=== PATIENT | male | born 1970 | race Caucasian/White ===

== ENCOUNTER → 2016-10-26 | Day surgery (SDC) | payer BC ==
[2016-10-18 15:13] VITALS: Ht 175.3 cm; Wt 95.9 kg
[~2016-10-26] VITALS: Ht 175.3 cm; Wt 95.9 kg
[~2016-10-26] MED LIST: AMLO-110 PO; AMOXPOW3 PO; BUPIVACAINE 0.25% 2.5MG/ML PF 10 ML VIAL INFIL ONE; BUPIVACAINE/EPINEPHRINE 0.5% MPF 1:200,000 30 ML VIAL ONE; CLINDAMYCIN 900MG IV SCH; DEXAMETHASONE SOD INJ 4 MG/ML VIAL ONE; EpHEDrine SULFATE INJ 50 MG/ML AMP ONE; FENTANYL CITRATE INJ 50 MCG/1 ML 2 ML VIAL IV PRN; FENTANYL CITRATE INJ 50 MCG/1 ML 2 ML VIAL ONE; HYDR25TA4 PO; LACTATED RINGER'S 1000ML 1,000 ML IV PRN; LACTATED RINGER'S 1000ML 1,000 ML IV SCH; LIDOCAINE HCL 2% 2 ML VIAL (20MG/ML) ONE; MIDAZOLAM HCL 1 MG/ML 2ML VIAL ONE; MoRPHine SULFATE PF 1 MG/ML 10 ML AMP/VIAL ONE; ONDANSETRON INJ 2 MG/ML 2 ML VIAL IV PRN; ONDANSETRON INJ 2 MG/ML 2 ML VIAL ONE; PROPOFOL IV EMULSION 10 MG/ML 20 ML VIAL IV ONE; ROPIVACAINE 0.5% 5 MG/ML 30 ML VIAL ONE; SCOPOLAMINE 1.5 MG TDSY TD ONE; SODIUM CHLORIDE 0.9% 1000ML 1,000 ML IV SCH
--- NOTE | 2016-10-26 09:36 | HISTORY & PHYSICAL EXAMINATION ---
DATE OF ADMISSION: 10/26/2016 ATTENDING PHYSICIAN: Dr. Nakul Gongora. CHIEF COMPLAINT: Severe reactive synovitis of the left knee. HISTORY OF PRESENT ILLNESS: This 45-year-old male presents to the clinic today for his preoperative history and physical examination. The patient has a longstanding history of left knee issues. He has had 2 previous arthroscopies of the left knee in regards to his medial meniscus with incomplete relief of his symptoms, persistent reactive synovitis, knee joint effusions and clicking with flexion and extension. The patient states that his knee issues may be due to an injury that occurred while playing football several years ago or due to his competitive bowling. The patient states that he has had multiple injections with viscosupplementation and steroid injections without relief of his symptoms. The patient states that the pain in the knee if affecting his daily life and causes a slight gait disturbance. PAST SURGICAL HISTORY: Cholecystectomy, ENT surgery, tonsillectomy/adenoidectomy, right shoulder surgery x2 and left knee arthroscopy x2. PAST MEDICAL HISTORY: Hypertension, hiatal hernia, gastroesophageal reflux disease and sleep apnea. FAMILY HISTORY: Father throat cancer. Brother salivary cancer. Uncle colon cancer. Paternal grandfather with esophageal cancer and mother hypertension. ALLERGIES: THE PATIENT HAS MEDICATION ALLERGIES TO BACTRIM, CEPHALEXIN, COMPAZINE, DROPERIDOL, HYDROCODONE, PHENERGAN AND PHENOTHIAZINES. CURRENT MEDICATIONS TAKEN: Amlodipine 5 mg tablet 1 tab daily, hydrochlorothiazide 12.5 mg tablet daily. SOCIAL HISTORY: The patient denies a history of smoking, alcohol or illicit drug use. PHYSICAL EXAMINATION: SKIN: The patient's skin is normal in appearance. No open skin lesions or discharge. EYES: Pupils are equal and reactive to light and accommodation. Extraocular movements are intact. EARS: Canals are clear of cerumen. Tympanic membranes are intact bilaterally with no bulging or effusion. THROAT: Posterior oropharynx clear with absence of edema, erythema or exudate. CARDIOVASCULAR EXAMINATION: The patient has a regular rate and rhythm with no murmurs or gallops appreciated. LUNGS: Auscultation of the lung posey reveals clear breath sounds throughout with no wheezing, rales or rhonchi. ABDOMEN: Mildly obese, nondistended, nontender with normoactive bowel sounds. EXTREMITIES: LEFT KNEE: The patient is able to extend to 0 degrees and flex to 138 degrees. He has audible clicking with active and passive range of motion in the knee joint. He also has moderate crepitation with active and passive range of motion. The patient has no medial or lateral joint line tenderness upon palpation with knee placed in a flexed position. He has no varus or valgus laxity, negative AP drawer sign, negative Brayden test. His patella is freely mobile. Left calf soft and supple, nontender to palpation. He experiences no referred knee pain with posterior plantar flexion of the left foot actively or passively against resistance. The patient is neurovascularly intact in his left lower extremity. His peripheral pulses are palpable. Capillary refill is brisk. He does have a small notable effusion over the anterior surface of the left knee joint. All other extremities are normal in appearance with appropriate range of motion and strength. NEUROLOGICAL EXAMINATION: Cranial nerves II-XII are intact. No motor or sensory deficit. PSYCHOLOGICAL AND GENERAL: The patient is alert and oriented x3 with proper grooming and hygiene. DIAGNOSIS: Left knee degenerative joint disease. PROCEDURE: Arthroscopic Carticel biopsy of the left knee. PLAN: The patient is scheduled to undergo this procedure with Dr. Nakul Gongora at the [facility] at 10:30 a.m. this morning. Risks and complications of surgery such as infection, bleeding, pain, scarring, nerve and blood vessel damage, weakness, wound problems, stiffness, incomplete relief of symptoms, heart attack, stroke, , blood clots, embolism and recurrence were explained to the patient. He understands and agrees. Written consent to perform the procedure was obtained. We have already obtained the patient's preoperative EKG, CBC, BMP and medical clearance from his primary care provider in [place], [place]. The patient was given a prescription for Lovenox to use for 7 days for DVT prophylaxis. Afterwards he states that he would use over the counter Advil for relief of pain, inflammation and for blood clotting properties. He was given a prescription for clindamycin 300 mg 4 times daily for 5 days for infection prophylaxis. He was offered a prescription for Percocet, but declined and stated that he would not take it so one was not provided. The patient was given a set of crutches that he will bring with him for today's surgery. He will be scheduled for 2 week postoperative followup with Dr. Gongora after the surgery and he will be given ice wrap after the surgery today as well. The patient verbalized understanding of all information provided at today's visit, thanked us for the care he has received and states that if he has questions or concerns that should arise he will direct them to Dr. Gongora this morning. CAROLE
--- NOTE | 2016-10-26 10:04 | History & Physical Bridge Note ---
H&P Re-Evaluation Bridge Note: I have examined the patient, reviewed the History & Physical and in the interval since the performance of the History & Physical I have noted the following changes of clinical significance: No changes noted
--- NOTE | 2016-10-26 10:06 | Discharge Instructions ---
Discharge Instructions Date of Service October 26, 2016. Visit Reason for Visit: Left Knee Degenerative Joint Disease Discharge Discharge Diagnosis / Problem: same Discharge Goals Goal(s): Improve function Medications Stopped Medications Name(s): na Restart Stopped Medication(s): use scripts as directed Activity Recommendations Activity Limitations: as noted below Lifting Limitations: until after follow-up appointment Exercise/Sports Limitations: until after follow-up appointment May Resume Sexual Activity: when tolerated Shower/Bathe: keep incision dry Driving or Machine Use: no limitations Weightbearing Status: Left weightbearing (as tolerated) Anesthesia . Post Anesthesia Instructions: If you have had General Anesthesia or IV Sedation: * Do not drive today. * Resume driving when surgeon permits. * Do not make important decisions or sign legal documents today. * Call surgeon for: 1. Temperature elevations greater than 101 degrees F. 2. Uncontrollable pain. 3. Excessive bleeding. 4. Persistent nausea and vomiting. 5. Medication intolerance (nausea, vomiting or rash). * For nausea and vomiting use only clear liquids such as: tea, soda, bouillon until nausea subsides, then gradually increase diet as tolerated. * If you have any concerns or questions, call your surgeon's office. If physician is unavailable and it is an emergency, call 911 or go to the nearest emergency room. . Instructions / Follow-Up Instructions / Follow-Up The following are instructions to follow after your Arthroscopic Knee Surgery. ACTIVITY RECOMMENDATIONS: * Minimize activity until your first visit after surgery. * No excessive walking, jogging, sports or laboring. * Return to activity is individualized. Most patients are able to return to every day activities within one month. * Return to sports or intensive labor usually occurs at 2-3 months. * Driving is not permitted until at least your first postoperative visit at a minimum. Please ask your doctor when it is safe to resume driving. If you have an automatic vehicle and your left leg has been operated on, then you may begin driving as soon as you are comfortable and can drive safely. SCHOOL/WORK RECOMMENDATIONS: * You may return to sedentary work or school when you are feeling more comfortable. This is usually 3-7 days after surgery. * Expect increased discomfort with increased activity. Continue to elevate and ice the leg as much as possible. MEDICATIONS: * You will have a prescription for pain medication and an anti-inflammatory medication after surgery. * Use the pain medication for severe pain and the anti-inflammatory for less severe pain. Once the pain medication has run out, try to use the anti-inflammatory medication. If this is not effective, contact the office for assistance. * The pain medication may cause nausea, constipation and drowsiness. You should see how they affect you before driving or similar activity. * The anti-inflammatory medication may cause stomach upset and bleeding. If this occurs let your doctor know immediately . * Take a stool softener like Colace or a laxative like Senokot to prevent constipation. DIET: * Resume previous diet. SPECIAL CARE: ICE: You have the option of an ice cooler, gel packs or ice bags. * If you have an ice cooler, refer to the instructions for that device. The ice cooler may be used continuously. * If you do not have an ice cooler, you will need to use ice bags or gel packs. Do not apply ice directly to the skin. Use a thin dressing or yang shirt between the skin and ice bag. Apply ice for 20-30 minutes and repeat every 2-4 hours. This is especially important for the first 7-10 days after surgery. Once the pain improves, use ice as needed. ELEVATION: * Keep your leg elevated at or above the level of your heart as much as possible. * Expect some increased discomfort and swelling if you are standing for any length of time. * When lying down, avoid placing anything under your knee. Rather, prop your leg up by placing several pillows under your heel or calf. DRESSING: * Your dressing will be changed at your first therapy appointment approximately 4-5 days after surgery. Band-aids, tape strips or gauze may be applied. You may then change your dressing daily. * Reapply dressing followed by the Brady wrap or Tubi-entry level business analyst stockinet and EBIce cooling pad (if chosen). * Always wash your hands prior to touching the incision area. * Once the stitches are removed, you may leave the wound open to air or cover with an Brady wrap or Tubi-entry level business analyst stockinet. * If you have been given a white elastic stocking (TRINIDAD hose), wear as much as possible for the first 1-3 weeks depending on swelling. * Expect some bloody drainage for the first few days after surgery. * Leave the tape strips, if present, in place for 5-7 days. * Band-aids and gauze may be changed daily. CRUTCHES: * You will need to use crutches after surgery. * You may gradually progress to full weight bearing as tolerated and wean off the crutches unless otherwise advised. * Your therapist can provide assistance weaning off crutches. * Patients who have a microfracture done may need to be toe-touch weight- bearing for 4-6 weeks. BATHING: * You may shower or sponge-bathe immediately after surgery. * The dressing will need to be covered with a plastic bag or plastic wrap until the dressing is changed on the fourth or fifth day after surgery. * Once the dressing has been changed on the fourth or fifth day after surgery, you may shower and get the incision wet. * Wash with regular soap and water. * Do not bathe (submerge the incision), soak, swim or use a hot tub until the incision is completely healed over with normal skin and the doctor has given the OK to proceed. * There is no need to apply any ointments, powders or salves to your incision. * Do not apply alcohol or hydrogen peroxide directly to the incision. * Diluted peroxide (50:50 mixture with sterile saline) may be used to clean dried blood from around the incision area. BRACE: * Bracing is generally not needed after routine Arthroscopic Knee surgery. THERAPY: * You will begin therapy four or five days after surgery. * Organized therapy with the therapist is important for the first 4-6 weeks after surgery. During that time you will attend therapy 1-3 times per week. * You will also need to do daily exercises for range of motion and strength as instructed. PROBLEMS/QUESTIONS: * If you have any problems such as severe pain, numbness, tingling or high fevers or if you have any questions, please contact the office at [phone]. * It is not uncommon to have some numbness and tingling after the surgery especially if you have had a nerve block done. This should gradually improve over the first 1- 2 days. If this persists longer or worsens please contact the office. FOLLOW UP VISIT: * If not already scheduled, please call the office at to schedule a follow-up appointment for 10 days, 6 weeks and 3 months after surgery. Diet Recommendations Recommended Home Diet: resume previous diet Procedures Procedures Performed: see op note Pending Studies Studies pending at discharge: yes List of pending studies: george Medical Emergencies . Who to Call and When: Medical Emergencies: If at any time you feel your situation is an emergency, please call 911 immediately. . Non-Emergent Contact Non-Emergency issues call your: Specialist Call Non-Emergent contact if: temperature is above 101.5 . . "Provider Documentation" section prepared by Nakul Gongora. .
--- NOTE | 2016-10-26 12:17 | [facility] Post Operative Brief Note ---
Immediate Operative Summary Operative Date October 26, 2016. Pre-Operative Diagnosis Degenerative Joint Disease, Left Knee Post-Operative Diagnosis same as preop Procedure(s) Performed see op note Surgeon Dr. Gongora Business Leader Surgeon(s) MALACHI Baez Estimated Blood Loss trace Findings 3x3 cm trochlear lesion/[id number] mtp lesion Fluids (cc crystalloids) 600cc Specimens Carticel Biopsy, left knee (sent via [employer]) Drains none Anesthesia LMA Complication(s) None Disposition Recovery Room / PACU
--- NOTE | 2016-10-26 12:47 | OPERATIVE REPORT ---
DATE OF OPERATION: 10/26/2016 SURGEON: Dr. Gongora. NEEDLE FELT MAKING MACHINE OPERATOR: Jael. SECOND NEEDLE FELT MAKING MACHINE OPERATOR: ilene PREOPERATIVE DIAGNOSIS: Articular disease, patellofemoral joint, medial compartment. POSTOPERATIVE DIAGNOSIS: Same. OPERATION PERFORMED: 1. Exam under anesthesia. 2. Diagnostic arthroscopy. 3. Arthroscopic chondroplasty trochlea. 4. Arthroscopic Carticel biopsy. 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 That area has been debrided in the past and is giving him recurrent articular breakdown and significant recurrent synovitis. At this point in time, options were discussed with him in his obviously very complicated scenario with intent try to avoid knee a replacement prematurely. This will not allow him to bowl professionally;attempting a biologic solution, so Carticel biopsy with potential unloading osteotomies of the patellofemoral joint and the medial compartment are being entertained. OPERATION: The patient appropriately identified, site verified, consent verified, 900 mg clindamycin confirmed as being given. The knee was examined revealing stable Brayden, pivot shift, anterior drawer test. The collateral ligaments were stable. The PCL had a trace asymmetry with a solid endpoint versus the opposite side. There was some mild effusion. The knee was then sterilely injected with 20 mL 0.5% Marcaine with epinephrine and 5 mg of Duramorph for postoperative pain control. The knee was then scoped through an inframedial and infralateral portal. Knee was copiously irrigated. The knee was then debrided of some synovitis anteriorly and medially. The medial meniscus had some minor changes. The area of the tibial plateau was debrided to a stable base, it was roughly 15 x 10 mm. The lateral meniscus, lateral compartment were healthy. The ACL was intact. PCL was intact as well. The trochlea was then debrided. There were multiple loose flaps, this was all debrided to a stable base and then ultimately multiple biopsies sent for the Carticel. This was appropriately placed in a specimen container and handed off to appropriate nursing staff and measured as a lesion 3 x 3 cm on the trochlea and 1.5 x 1 cm on the tibia. The procedure was then terminated after all instruments and fluid removed and looking from the opposite side, no other additional pathology found. The procedure was then terminated completely. All instruments and fluid removed and the portals closed with 4-0 nylon, dressed with Xeroform, 4 x 4 gauze, sterile Webril, ABD pads, and above knee TRINIDAD stocking. The patient will be weightbearing to tolerance. Ultimately, when this is implanted , the Carticel we will determine whether or not he needs a high tibial opening wedge osteotomy. The patient understands all this, will be no guarantee in the future and ultimately will need a replacement trying to prevent that prematurely. I attest to the content of the Intraoperative Record and any orders documented therein. Any exceptions are noted below. CAROLE
--- NOTE | 2016-10-26 12:49 | OPERATIVE REPORT ---
DATE OF OPERATION: 10/26/2016 PREOPERATIVE DIAGNOSIS: Degenerative joint disease, left knee. POSTOPERATIVE DIAGNOSIS: Left knee same. PROCEDURE: Left knee arthroscopy with debridement and cartilage biopsy for Carticel growth. SURGEON: Nakul Gongora MD DICTATING MACHINE MECHANIC: Jose Luis Lemon MD SECOND TOMOGRAPHIC TECH: Chandra Houston PA-C HISTORY OF PRESENT ILLNESS: This 45-year-old white male presented to the office with complaints of left knee pain that had been ongoing for several years. He has tried conservative care measures in the past without lasting relief. He elects to proceed with biopsy for Carticel growth and reimplantation at a later date in hopes of alleviating his arthritic pain. DESCRIPTION OF PROCEDURE: The patient was taken to the operating room and given general anesthetic. He was prepped and draped in the usual sterile fashion. Please see Dr. Gongora's operative report for specifics of the procedure. I was present for the entire case from initial patient positioning through final wound closure. Assistance was provided in patient positioning, arthroscopy, and final wound closure. The patient was taken to the recovery room in satisfactory condition. I attest to the content of the Intraoperative Record and any orders documented therein. Any exceptio ns are noted below.
[2016-10-26 13:00] VITALS: TEMP 36.6
--- NOTE | 2016-10-26 13:01 | Anesthesia Progress Nt - [facility] ---
Anesthesia Post Op Note Date & Time October 26, 2016 at 13:01 Vital Signs Pain Intensity: 0 Vital Signs Past 12 Hours Date Time Temp Pulse Resp B/P Pulse Ox O2 Delivery O2 Flow Rate FiO2 10/26/16 12:56 137/87 10/26/16 12:55 36.8 95 Room Air 10/26/16 12:53 70 0 93 10/26/16 12:53 69 0 10/26/16 12:52 65 0 10/26/16 12:52 65 0 93 10/26/16 12:51 142/93 10/26/16 12:47 77 19 10/26/16 12:47 77 19 96 10/26/16 12:46 135/93 10/26/16 12:45 77 6 98 10/26/16 12:45 75 6 10/26/16 12:42 133/80 10/26/16 12:40 82 18 10/26/16 12:40 83 18 100 10/26/16 12:39 75 10 10/26/16 12:39 75 10 100 10/26/16 12:36 137/92 10/26/16 12:34 86 13 100 10/26/16 12:34 86 13 10/26/16 12:31 136/84 10/26/16 12:29 89 17 100 10/26/16 12:29 88 17 10/26/16 12:27 123/76 10/26/16 12:25 127/80 10/26/16 12:24 36.7 90 16 127/80 99 Mask 8 10/26/16 10:19 36.7 62 20 150/101 95 Room Air 142/87 Notes Mental Status: alert / awake / arousable, participated in evaluation Pt Amnestic to Procedure: Yes Nausea / Vomiting: adequately controlled Pain: adequately controlled Airway Patency, RR, SpO2: stable & adequate BP & HR: stable & adequate Hydration State: stable & adequate Anesthetic Complications: no major complications apparent Pt doing well.
[2016-10-26 13:34] VITALS: BP 137/79; PULSE 69; O2SAT 97
== END | disposition home or self-care (01) ==
LOC: X.SURG 09:55
PROVIDERS: ATTEND Physical Medicine & Rehabilitation Sports Medicine
DX: M17.12 Unilateral primary osteoarthritis, left knee (principal); M22.2X2 Patellofemoral disorders, left knee; Z90.49 Acquired absence of other specified parts of digestive tract; I10 Essential (primary) hypertension; K21.9 Gastro-esophageal reflux disease without esophagitis; Z90.89 Acquired absence of other organs; G47.33 Obstructive sleep apnea (adult) (pediatric); J45.909 Unspecified asthma, uncomplicated; Z98.890 Other specified postprocedural states; E66.9 Obesity, unspecified; Z68.31 Body mass index [BMI] 31.0-31.9, adult; Z88.1 Allergy status to other antibiotic agents; Z80.0 Family history of malignant neoplasm of digestive organs; Z82.49 Family history of ischemic heart disease and other diseases of the circulatory system

== ENCOUNTER → 2017-01-18 | Day surgery (SDC) | payer BC ==
[2016-12-07 12:54] VITALS: BMI 31.0
[2017-01-04 07:38] VITALS: Ht 175.3 cm; Wt 98.2 kg
--- NOTE | 2017-01-17 17:06 | History and Physical: Surg Cnt ---
History & Physical Date Jan 17, 2017. Chief Complaint Left knee pain History of Present Illness This 46-year-old white male presents with complaints of left knee pain. He has pain in the patellofemoral area, medial joint line, and posterior lateral joint line. Patient previously had knee arthroscopy with cartilage cell harvest on October 26. He elects to proceed with left knee arthrotomy, DINORA implantation of the femur and tibia with Earnest osteotomy. He has had long-standing left knee pain. Pain is worse with weight-bearing activity. He denies any catching or locking. He does have a snapping sensation. No numbness or tingling. His accompanies him today. Past Medical/Surgical History Previous surgeries: Right shoulder surgery, numerous left knee surgeries. ENT surgery, tonsillectomy with adenoidectomy, cholecystectomy. Medical history: Significant for hypertension, asthma, use of CPAP, anxiety, osteoarthritis, low back pain, GERD, hiatal hernia Allergies Coded Allergies: Cephalexin (Verified Allergy, Unknown, HIVES, 01/04/17) Doxycycline (Verified Allergy, Unknown, HIVES, 01/04/17) Droperidol (Verified Allergy, Unknown, DYSTOLIC RX, 01/04/17) Hydrocodone (Verified Allergy, Unknown, UNKNOWN, 01/04/17) Phenothiazines (Verified Allergy, Unknown, DYSTOLIC REACTION, 01/04/17) Prochlorperazine (Verified Allergy, Unknown, DYSTOLIC REACTION, 01/04/17) Promethazine (Verified Allergy, Unknown, Dystonic reaction, 01/04/17) Sulfamethoxazole w/Trimethoprim (Verified Allergy, Unknown, HIVES, 01/04/17) Home Medications Scheduled Amlodipine (Norvasc), 5 MG PO QAM Hydrochlorothiazide (Hctz), 25 MG PO QAM Social History Smoking Status: Never Smoker Alcohol Use: none Additional Notes: . 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 Family history: Significant for cancer and hypertension. Physical Examination Skin: warm/dry, no rash, + pertinent finding (scars present on his left knee.) Eyes: normal inspection, EOMI, sclerae normal ENT: pharynx normal Head: normocephalic, atraumatic Neck: supple, no adenopathy, trachea midline Respiratory/Chest: lungs clear, normal breath sounds, no respiratory distress ( no crackles, rhonchi, or wheezing.) Cardiovascular: regular rate, rhythm, no murmur (no gallops or rubs.), + bradycardia Abdomen / GI: normal bowel sounds, non tender Extremities: + pertinent finding (left knee has no significant intra-articular effusion. He has focal discomfort with palpation over the medial joint line. There is also peripatellar discomfort. Full terminal extension. Flexion to greater than 110. Strength is 5/5 with good quad tone. No defect in the patellar tendon or quadriceps tendon. Ambulatory with a normal gait. Stable collateral ligaments. Positive cartilage defect in the trochlea and medial femoral condyle and medial tibial plateau on previous arthroscopy.) Neurologic/Psych: no motor/sensory deficits, alert, oriented x 3 Diagnosis Left knee DJD of the trochlea and medial compartment Operation Informed written consent was obtained by the surgeon to proceed with left knee arthrotomy, DINORA implantation of the femur and tibia, and Earnest osteotomy on 01/18/2017. Preoperative CBC and PRP were obtained. He radius crutches. Prescriptions for Lovenox, Zithromax, and [place] were provided.
[2017-01-17 18:00] LABS: BASO % 0.4 %; BASO ABS # 0.03 K/uL (0-0.2); COMPLETE YES; EOS % 2.8 %; HEMATOCRIT 46.1 % (42-52); IG% 0.1 %; LYMPH ABS # 2.07 K/uL (1.2-3.4); MEAN CELL VOLUME 84.9 fL (80-100); MEAN CORPUSCULAR HEMOGLOBIN 30.2 pg (25-34); MEAN CORPUSCULAR HGB CONC 35.6 g/dl (32-36); MEAN PLATELET VOLUME 10.1 fL (7.4-10.4); MONO % 6.4 %; NEUT % 59.3 %; PLATELET COUNT 220 K/uL (130-400); RED BLOOD COUNT 5.43 M/uL (4.7-6.1); WHITE BLOOD COUNT 6.67 K/uL (4.8-10.8)
[2017-01-17 18:03] LABS: BUN/CREATININE RATIO 11.1 (10-20); CALCIUM 8.9 mg/dl (8.5-10.1); CREATININE 1.1 mg/dl (0.60-1.40); POTASSIUM 3.7 mmol/L (3.5-5.1)
[~2017-01-18] VITALS: Ht 175.3 cm; Wt 98.2 kg
[~2017-01-18] MED LIST changes: -AMOXPOW3 PO; +ATROPINE SULFATE 0.1 MG/ML 5ML SYR IV PRN; -BUPIVACAINE 0.25% 2.5MG/ML PF 10 ML VIAL INFIL ONE; -BUPIVACAINE/EPINEPHRINE 0.5% MPF 1:200,000 30 ML VIAL ONE; -CLINDAMYCIN 900MG IV SCH; +CLINDAMYCIN PHOS 150 MG/ML 2 ML VIAL IV SCH; +EpHEDrine SULFATE INJ 50 MG/ML AMP IV PRN; -EpHEDrine SULFATE INJ 50 MG/ML AMP ONE; +EpINEphrine INJ 1MG/ML AMP 1 MG/ML AMP ONE; -FENTANYL CITRATE INJ 50 MCG/1 ML 2 ML VIAL IV PRN; +GELATIN SPONGE SZ 100 ONE; +GLYCOPYRROLATE INJ 0.2 MG/ML VIAL ONE; +HYDROCODONE/ACETAMOPHEN 5/325MG TAB PO PRN; +HYDROmorphone INJ 0.5 MG/0.5 ML SYR ONE; +HYDROmorphone INJ 2 MG/ML SYR/VIAL IV PRN; -LACTATED RINGER'S 1000ML 1,000 ML IV PRN; +LEVOFLOXACIN 500 MG TAB PO SCH; +LIDOCAINE HCL 1% MPF 2 ML VIAL ONE; +MEPERIDINE HCL 25 MG/ML CARP IV ONE; +MEPERIDINE HCL 25 MG/ML CARP ONE; +MINERAL OIL LIGHT 10 ML BTL ONE; -MoRPHine SULFATE PF 1 MG/ML 10 ML AMP/VIAL ONE; +NURSING VERBAL MED ORDER ONE; +PHENYLEPHRINE 100MCG/ML 5ML SYR IV PRN; +THROMBIN 5000 UNITS KIT ONE; +TISSEEL FIBRIN SEALANT 10ML TOP ONE
--- NOTE | 2017-01-18 10:01 | Discharge Instructions ---
Discharge Instructions Date of Service Jan 18, 2017. 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 Post Anesthesia Instructions: If you have had General Anesthesia or IV Sedation: * Do not drive today. * Resume driving when surgeon permits. * Do not make important decisions or sign legal documents today. * Call surgeon for: 1. Temperature elevations greater than 101 degrees F. 2. Uncontrollable pain. 3. Excessive bleeding. 4. Persistent nausea and vomiting. 5. Medication intolerance (nausea, vomiting or rash). * For nausea and vomiting use only clear liquids such as: tea, soda, bouillon until nausea subsides, then gradually increase diet as tolerated. * If you have any concerns or questions, call your surgeon's office. If physician is unavailable and it is an emergency, call 911 or go to the nearest emergency room. . Instructions / Follow-Up Instructions / Follow-Up DIET: * Resume previous diet. MEDICATIONS: * Please take your prescriptions as instructed at your pre-op appointment and/ or see medication discharge instructions listed above. * If concerns develop, call your physician's office at . SPECIAL CARE INSTRUCTIONS: * Ice/Elevate as instructed. * Keep dressing clean, dry, intact. * Your surgical extremity may be discolored due to prepping agents used on the skin. A bluish-green tint is a normal variant and should not cause alarm. Call your doctor at [phone] if: * Temperature above 101 degrees * Pain not relieved by pain medicine ordered * There is increased drainage or redness from any incision * You have any unanswered questions, problems or concerns. FOLLOW UP VISIT: * If not already scheduled, please call the office at to schedule a follow-up appointment. Diet Recommendations Recommended Home Diet: resume previous diet Procedures Procedures Performed: SEE OP NOTE Pending Studies Studies pending at discharge: no Medical Emergencies . Who to Call and When: Medical Emergencies: If at any time you feel your situation is an emergency, please call 911 immediately. . Non-Emergent Contact Non-Emergency issues call your: Specialist Call Non-Emergent contact if: temperature is above 101.5 . . "Provider Documentation" section prepared by Nakul Gongora. .
--- NOTE | 2017-01-18 10:02 | History & Physical Bridge Note ---
H&P Re-Evaluation Bridge Note: I have examined the patient, reviewed the History & Physical and in the interval since the performance of the History & Physical I have noted the following changes of clinical significance:CONSENT VERIFIED. No changes noted
--- NOTE | 2017-01-18 12:40 | [facility] Post Operative Brief Note ---
Immediate Operative Summary Operative Date Jan 18, 2017. 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 Gongora School Bus Mechanic Surgeon(s) Jelena Crenshaw, Fellow; Alfredo Houston PA-C Estimated Blood Loss 100 ML Findings see op note Fluids (cc crystalloids) 1100cc Specimens None Drains none Anesthesia LMA/block Complication(s) None Disposition Recovery Room / PACU
--- NOTE | 2017-01-18 12:59 | [facility] Operative Report ---
Operative Report Operative Date Jan 18, 2017. Pre-Operative Diagnosis Left Knee Patellofemoral Degenerative Joint Disease/MFC lesion Post-Operative Diagnosis Left knee same Procedure(s) Performed Left Knee open Carticel Implantation With Earnest Osteotomy trochlea and MFC/anterior compartment fasciotomy Surgeon Dr. Gongora Carpet Finishing Supervisor Surgeon(s) Jelena Crenshaw, Fellow; Alfredo Houston PA-C Estimated Blood Loss 100 ML Findings Left knee cartilage loss trochlea and medial femoral condyle Fluids (cc crystalloids) 1100cc Specimens None Drains none Complication(s) None Disposition Recovery Room / PACU Indications This 46-year-old white male presented the office with recurrent left knee pain. He underwent previous arthroscopy in September of this year that confirmed large areas of articular cartilage loss in the trochlea and medial femoral condyle. He elected to proceed with cartilage cell implantation and Earnest osteotomy after being educated about potential risks and outcomes. Description of Procedure Patient was administered a regional block and then taken to the operating room where he was given general anesthesia. He was prepped and draped in usual sterile fashion. Please see Dr. Gongora's operative report for specifics of the procedure. I was present for the entire case from initial patient positioning through final wound closure. Assistance was provided in tissue traction, hemostasis, hardware placement, graft placement, and final wound closure. Patient was taken to the recovery room in satisfactory condition. I attest to the content of the Intraoperative Record and any orders documented therein. Any exceptions are noted below.
--- NOTE | 2017-01-18 13:43 | OPERATIVE REPORT ---
DATE OF OPERATION: 01/18/2017 SURGEON: Nakul Gongora MD [employer]: Den, orthopedic sports medicine fellow. SECOND [employer]: Chandra Houston PA-C PREOPERATIVE DIAGNOSIS: Articular disease, femoral trochlea and medial femoral condyle and medial tibial plateau. POSTOPERATIVE DIAGNOSIS: Same. OPERATION PERFORMED: 1. Exam under anesthesia. 2. Open Earnest osteotomy, extensor mechanism. 3. Open DINORA Carticel implantation, trochlear lesion, 22 x 22 mm. 4. DINORA Carticel implantation, medial femoral condylar lesion, 21 mm superior, inferior and 11 mm medial lateral. 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 At this point in time, it has been discussed with him in detail regarding multiple procedures including Earnest osteotomy, ACI implantation and potential ultimately high tibial osteotomy to try to protect his biological environment. He wished to proceed with the extensor mechanism procedure and implantation of the ACI to the defects on the distal femur and the femoral trochlea. Physical exam, x-ray and MRI scan consistent with the above diagnoses. He has had a recent arthroscopic assessment with ACI biopsy. At this point in time, he is ready for the procedure. DESCRIPTION OF PROCEDURE: The patient was appropriately identified, site verified, consent verified, and 900 mg of clindamycin confirmed as being given. The left lower extremity was examined revealing a stable ACL, grade 1 PCL, stable medial and lateral collateral ligaments. He was then sterilely prepped and draped in the usual routine fashion and an anterior exposure to the tibia made after the tourniquet was inflated to 275 mmHg after exsanguination of limb with a rubber Esmarch bandage for a total of approximately 1 hour and 50 minutes. A subperiosteal dissection was then carried out on the medial and lateral side of the tibia as well as proximally on the extensor mechanism attachment. The osteotome was then used to make the proximal cuts and then the power saw to make the distal cuts with the steep slope, but not violating the posterior cortex of the tibia. Osteotomy was then raised with an osteotome and excellent elevation was obtained. It was then positioned approximately a cm medial to its normal position and fixed with two 4.5 cortical screws, being 54 and 52 mm in length with excellent purchase. This was verified by biplane fluoroscopy. The screws were then removed and the arthrotomy extended proximally, mostly laterally and some medially and then the trochlear lesion could be identified. It was curetted clean and was noted to be roughly 22 x 22 mm. The medial femoral condylar lesion was then identified and it was curetted clean. It was noted to be 21 superior to inferior and 11 mm medial to lateral. The trochlear lesion was fixed first followed by the medial femoral condyle lesion of the same technique was utilized. The areas were curetted down to subchondral bone, removing the calcified cartilage layer. Bleeding controlled with epinephrine and fibrin and then following templating the membrane side of the Carticel implant, was barely removed from the container and then placed appropriately on the template and cut and then sulci placed against the subchondral bone after fibrin glue placed at the base and then after 3 minutes, fibrin glue around the margin and after additional 2 minutes, additional fibrin glue placed. Range of motion produced no defect elevation of the flap, both on the medial femoral condyle and on the trochlea. Again, the trochlea was done first and the medial femoral condyle second, but both techniques were the same. Once this was completed, the knee was ranged and everything looked good. There was no elevation of the flap. The wound was irrigated without irrigating the flaps per se. The osteotomy was then repositioned with the screws and secured with excellent purchase. Biplane fluoroscopy revealed excellent fixation and positioning. The wound was irrigated at one final time. The tourniquet was deflated. Bleeding points controlled with the electrocautery. It should be mentioned that an anterior fasciotomy was performed prior to doing the osteotomy prophylactically. There was 1 arterial branch laterally that was coagulated well. This probably the inferolateral geniculate. There was no major bleeding after that. Total blood loss was approximately 100 mL. Crystalloid approximately 1100 mL. The wound was then closed with #1 Vicryl for the medial small part of the arthrotomy. The lateral side was left open to decompress the patellofemoral joint. The skin was closed with 2-0 plain and the skin with rena. He will be nonweightbearing strict for 6 weeks. Range of motion will be 0-30 degrees starting at 24 hours. He will start DVT prophylaxis tomorrow with Lovenox. He will follow up with me in 2 weeks for staple removal. IMPLANTS USED: Carticel ACI, DINORA implant 22 x 22 for the trochlea and 21 superior inferior, and 11 medial lateral for the medial femoral condyle. I attest to the content of the Intraoperative Record and any orders documented therein. Any exceptions are noted below. MTDD
--- NOTE | 2017-01-18 14:16 | Anesthesia Progress Nt - [facility] ---
Anesthesia Post Op Note Date & Time Jan 18, 2017 at 14:15 Vital Signs Pain Intensity: 6.0 Vital Signs Past 12 Hours Date Time Temp Pulse Resp B/P (MAP) Pulse Ox O2 Delivery O2 Flow Rate FiO2 01/18/17 13:02 36.1 97 12 172/105 97 Mask 6 01/18/17 10:26 0 01/18/17 10:20 124/79 01/18/17 10:18 56 15 100 01/18/17 10:18 54 9 100 01/18/17 10:15 122/84 01/18/17 10:13 65 28 100 01/18/17 10:13 66 01/18/17 10:10 136/87 01/18/17 10:08 54 16 152/118 100 01/18/17 10:08 55 01/18/17 10:03 0 01/18/17 10:03 0 01/18/17 09:21 36.9 55 16 142/95 (111) 97 Room Air Notes Mental Status: alert / awake / arousable, participated in evaluation Pt Amnestic to Procedure: Yes Nausea / Vomiting: adequately controlled Pain: adequately controlled Airway Patency, RR, SpO2: stable & adequate BP & HR: stable & adequate Hydration State: stable & adequate Anesthetic Complications: no major complications apparent
[2017-01-18 14:50] VITALS: TEMP 36.6
[2017-01-18 15:22] VITALS: BP 140/87; PULSE 64; O2SAT 96
== END | disposition home or self-care (01) ==
LOC: X.SURG 09:06
PROVIDERS: ATTEND Physical Medicine & Rehabilitation Sports Medicine
DX: M23.92 Unspecified internal derangement of left knee (principal); I10 Essential (primary) hypertension; J44.9 Chronic obstructive pulmonary disease, unspecified; K21.9 Gastro-esophageal reflux disease without esophagitis; Z79.899 Other long term (current) drug therapy

== ENCOUNTER → 2017-02-28 | Outpatient (CLI) | payer BC ==
[~2017-02-28] MED LIST changes: -ATROPINE SULFATE 0.1 MG/ML 5ML SYR IV PRN; -CLINDAMYCIN PHOS 150 MG/ML 2 ML VIAL IV SCH; -DEXAMETHASONE SOD INJ 4 MG/ML VIAL ONE; -EpHEDrine SULFATE INJ 50 MG/ML AMP IV PRN; -EpINEphrine INJ 1MG/ML AMP 1 MG/ML AMP ONE; -FENTANYL CITRATE INJ 50 MCG/1 ML 2 ML VIAL ONE; -GELATIN SPONGE SZ 100 ONE; -GLYCOPYRROLATE INJ 0.2 MG/ML VIAL ONE; -HYDROCODONE/ACETAMOPHEN 5/325MG TAB PO PRN; -HYDROmorphone INJ 0.5 MG/0.5 ML SYR ONE; -HYDROmorphone INJ 2 MG/ML SYR/VIAL IV PRN; -LACTATED RINGER'S 1000ML 1,000 ML IV SCH; -LEVOFLOXACIN 500 MG TAB PO SCH; -LIDOCAINE HCL 1% MPF 2 ML VIAL ONE; -LIDOCAINE HCL 2% 2 ML VIAL (20MG/ML) ONE; -MEPERIDINE HCL 25 MG/ML CARP IV ONE; -MEPERIDINE HCL 25 MG/ML CARP ONE; -MIDAZOLAM HCL 1 MG/ML 2ML VIAL ONE; -MINERAL OIL LIGHT 10 ML BTL ONE; -NURSING VERBAL MED ORDER ONE; -ONDANSETRON INJ 2 MG/ML 2 ML VIAL IV PRN; -ONDANSETRON INJ 2 MG/ML 2 ML VIAL ONE; -PHENYLEPHRINE 100MCG/ML 5ML SYR IV PRN; -PROPOFOL IV EMULSION 10 MG/ML 20 ML VIAL IV ONE; -ROPIVACAINE 0.5% 5 MG/ML 30 ML VIAL ONE; -SCOPOLAMINE 1.5 MG TDSY TD ONE; -SODIUM CHLORIDE 0.9% 1000ML 1,000 ML IV SCH; -THROMBIN 5000 UNITS KIT ONE; -TISSEEL FIBRIN SEALANT 10ML TOP ONE
== END | disposition home or self-care (01) ==
LOC: C.RDSM 15:00
PROVIDERS: ATTEND Physical Medicine & Rehabilitation Sports Medicine
DX: M17.32 Unilateral post-traumatic osteoarthritis, left knee (principal)

== ENCOUNTER → 2017-04-18 | Outpatient (CLI) | payer BC | END | disposition home or self-care (01) | LOC: C.RDSM 14:45 | PROVIDERS: ATTEND Physical Medicine & Rehabilitation Sports Medicine | DX: M17.32 Unilateral post-traumatic osteoarthritis, left knee (principal) ==

== ENCOUNTER → 2017-05-27 | Outpatient (CLI) | payer BC ==
[~2017-05-27] MED LIST changes: -AMLO-110 PO; +AMLO5TAB3 PO
== END | disposition home or self-care (01) ==
LOC: C.RDSM 09:33
PROVIDERS: ATTEND Physical Medicine & Rehabilitation Sports Medicine
DX: M25.562 Pain in left knee (principal); R22.42 Localized swelling, mass and lump, left lower limb

== ENCOUNTER → 2017-07-25 | Outpatient (CLI) | payer BC ==
[~2017-07-25] MED LIST changes: +AMLO-110 PO; -AMLO5TAB3 PO
== END | disposition home or self-care (01) ==
LOC: C.RDSM 06:29
PROVIDERS: ATTEND Physical Medicine & Rehabilitation Sports Medicine
DX: M17.32 Unilateral post-traumatic osteoarthritis, left knee (principal)